=== PATIENT | male | born 1995 | race Two or more races ===

== ENCOUNTER 2024-07-27 13:07 | Emergency (ER) | payer MEDICAID, OTHER ==
[~2024-07-27] VITALS: Ht 182.9 cm; Wt 113.6 kg
[2024-07-27 13:44] VITALS: BP 121/70; PULSE 79; RESP 16; TEMP 98.9; O2SAT 96
[2024-07-27] MEDS ORDERED: IBUP1TAB5 PO (15:02)
[2024-07-27] MEDS ORDERED: CYCL-837 PO (15:02)
== END 2024-07-27 15:14 | disposition home or self-care (01) ==
LOC: ER 13:07
DX: M54.50 Low back pain, unspecified (principal); M54.6 Pain in thoracic spine; Z79.899 Other long term (current) drug therapy; V89.2XXA Person injured in unspecified motor-vehicle accident, traffic, initial encounter; Y93.89 Activity, other specified; Y92.89 Other specified places as the place of occurrence of the external cause; Y99.8 Other external cause status
CPT/HCPCS: 72100